=== PATIENT | female | born 2000 | race Two or more races ===

== ENCOUNTER 2019-09-12 12:08 | Emergency (ER) | payer MEDICAID, OTHER ==
[~2019-09-12] VITALS: Ht 157.5 cm; Wt 62.8 kg
[2019-09-12] MEDS ORDERED: CEFTRIAXONE 250 MG IM ONE (13:00)
[2019-09-12] MEDS ORDERED: AZITHROMYCIN 500 MG TABLET PO ONE (13:00)
--- NOTE | 2019-09-12 13:02 | NUR ---
BREAK RN FOR PRIMARY RN RADHA. RECEIVED REPORT AND CARE FROM TASK RN MANSI. YARI FENG AT BEDSIDE FOR EVALUATION, AWAITING ORDERS. VSS. DENIES ANY PAIN. PROVIDED UA CUP, AMBULATORY TO RESTROOM WITH STEADY GAIT FOR SAMPLE.
--- NOTE | 2019-09-12 13:09 | NUR ---
BREAK RN. CHAPERONED YARI FENG WITH VAGINAL EXAM AT BEDSIDE.
--- NOTE | 2019-09-12 13:15 | NUR ---
CLEAN CATCH UA COLLECTED AND SENT TO LAB. TO MEDICATED PT PER EMAR AND MD ORDER. RESTING COMFORTABLY. VSS. CALL LIGHT IN REACH. FALL PRECAUTIONS IN PLACE
[2019-09-12] MEDS ORDERED: AZITHROMYCIN 500 MG TABLET ONE (13:27)
[2019-09-12] MEDS ORDERED: CEFTRIAXONE 250 MG ONE (13:27)
[2019-09-12 13:40] LABS: HCG UR SG 1.023 (1.003-1.030); MICROSCOPIC AUTO
[2019-09-12 14:14] VITALS: BP 111/61
--- NOTE | 2019-09-12 14:14 | NUR ---
PT D/C'D PER ERMD ORDERS. PT VERBALIZED UNDERSTANDING OF D/C OREDS.
== END 2019-09-12 14:16 | disposition home or self-care (01) ==
LOC: ED 14:02
DX: A56.01 Chlamydial cystitis and urethritis (principal); A54.01 Gonococcal cystitis and urethritis, unspecified; N89.8 Other specified noninflammatory disorders of vagina
CPT/HCPCS: 81001; 81025; 96372; 99283; J0696